=== PATIENT | female | born 1945 | race Hispanic/Latino ===

== ENCOUNTER 2017-07-18 11:30 | Outpatient (CLI) | payer MEDICARE ==
--- NOTE | 2017-07-18 21:31 | XRay Report ---
FINAL REPORT EXAM: XR KNEE BILAT 4+V HISTORY: BILATERAL KNEE PAIN TECHNIQUE: Four views of each knee were performed Comparison: None FINDINGS: Mild diffuse osteopenia. On the left: Medial femoral condylar squaring and [id number] medial joint space narrowing. Tibial spine blunting. No chondrocalcinosis. No suprapatellar bursal effusion. Small superior patellar pole osteophyte. On the right: Medial femoral condylar squaring more severe than on the left with [id number] appearance. Marginal osteophytic change and lipping. Tibial spine blunting. No suprapatellar bursal effusion. Superior and inferior patellar pole osteophytes with mild soft tissue reticulation. The bilateral sunrise views demonstrate mild patellofemoral degenerative disease with more markedly joint space narrowing on the right than the left. IMPRESSION: Mild left knee medial compartment predominant osteoarthritis. Moderate to severe right knee medial space compartment predominant osteoarthritis.
== END 2017-07-18 11:31 | disposition home or self-care (01) ==
LOC: SPVIMAG 11:30
PROVIDERS: ATTEND Orthopaedic Surgery Sports Medicine
DX: M17.0 Bilateral primary osteoarthritis of knee (principal)